=== PATIENT | female | born 1970 | race Caucasian/White ===

== ENCOUNTER 2021-06-14 13:20 | Outpatient (CLI) | payer BC, SELFPAY | END 2021-06-14 23:59 | disposition short-term general hospital (02) | LOC: LABSPEC 13:21 | PROVIDERS: PCP Family Medicine; Referring Provider Physician Assistant Surgical; Visit Provider Physician Assistant Surgical | DX: Z11.52 Encounter for screening for COVID-19 (principal) | CPT/HCPCS: 87635; U0003; U0005 ==

== ENCOUNTER 2023-02-16 06:08 | Emergency (ER) | payer BC, SELFPAY ==
[2023-02-16 06:09] VITALS: BP 147/88; PULSE 85; RESP 18; TEMP 36.1; O2SAT 98; BMI 26.1
--- NOTE | 2023-02-16 06:19 | ED.VIS.GI ---
HPI HPI - GI History of Present Illness Chief Complaint: Abd Pain Informant: patient Narrative Narrative: Patient presents with epigastric pain that has been off and on randomly for a month or more, usually only lasting for an hour or 2, however this morning it woke her up around 1 AM and she presents around 6 AM because of it being persistently uncomfortable despite taking multiple rounds of Tums which have seemed to do nothing. She states it does not usually get worse or better with food once the pain is there. Occasional nausea no vomiting. No bright red blood per rectum or melena. No urinary symptoms. No chest pain or shortness of breath. No history of any abdominal surgeries. She states that she has not mentioned this to her doctor, but she had an abnormal alkaline phosphatase on some routine labs so she has an ultrasound of her liver scheduled as an outpatient. [facility] Medical History High cholesterol Home Medications atorvastatin 20 mg tablet 20 mg PO QHS 02/16/23 [History Last Taken Unknown] Allergy/AdvReac Type Severity Reaction Status Date / Time No Known Allergies Allergy Verified 02/16/23 06:12 Social History Smoking Status: Current every day smoker tobacco type: cigarettes ROS ROS ED Constitutional Constitutional ED: Denies chills or fever(s) Eyes Eyes: Denies change in vision or diplopia ENT ENT ED: Denies rhinorrhea or sore throat Cardiovascular Cardiovascular: Denies chest pain or palpitations Respiratory/Chest Respiratory/Chest: Denies cough or dyspnea Gastrointestinal Gastrointestinal: Reports abdominal pain; Denies diarrhea, melena or vomiting Genitourinary Genitourinary ED: Denies dysuria or hematuria Musculoskeletal Musculoskeletal: Denies back pain or neck pain Integumentary Denies abscess or rash Neurologic Neurologic: Denies headache(s), paresthesias or weakness Psychiatric Psychiatric: Denies anxiety or suicidal thoughts EXAM Physical Exam Const Vital Signs: 02/16/23 06:09 Temperature 97.0 F L Temperature Source Temporal Pulse Rate 85 Respiratory Rate 18 Blood Pressure 147/88 H Blood Pressure Mean 107 Pulse Ox 98 Oxygen Delivery Method Room Air Positive well nourished and well developed General Appearance ED: well developed and NAD HEENT Reports moist mucous membranes normocephalic and atraumatic Eyes PERRL and EOMs intact bilaterally Neck full ROM and supple Resp normal respiratory effort and clear to auscultation bilaterally Cardio regular rate, regular rhythm and no murmurs GI non-distended GI Narrative: Mild high epigastric tenderness, otherwise benign abdomen. Negative Castro. No guarding or rebound tenderness. No palpable pulsatile mass. Auscultation: normoactive bowel sounds Palpation: soft Back/Spine no CVA tenderness General Back: other FROM Extremity normal to inspection General Extremety ED: Negative for edema, pulses abnormal or tenderness General Extremity: Negative for edema or pulses abnormal Neuro oriented x3, CN's II-XII intact bilaterally and no sensory deficits noted Sensorium / Orientation: awake and alert Motor Exam: strength 5/5 throughout Psych mental status grossly normal Skin no rashes or lesions noted and no wounds MDM MDM MDM Narrative Medical decision making narrative: Patient presents at a time when ultrasound is not available, and I do not think she needs an emergent CT. Obtained labs and did a bedside POC gallbladder ultrasound myself, which on my interpretation shows no cholelithiasis, no signs of acute cholecystitis, and a negative sonographic Castro. While working her up she was given oral dicyclomine and simethicone. This did not help at all, so I followed this with IV Toradol which helped significantly. 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 Her vital signs are normal, she does not have significant leukocytosis, her alkaline phosphatase is slightly nonspecifically elevated as she said, I do not have her old ones to compare this with, but her other liver enzymes and lipase are normal. Patient is comfortable going home, advised to follow-up for her scheduled right upper quadrant ultrasound and apparently she is having a CT of the chest as a screening tool for cancer since she is a smoker. Lab Data Attestation: I reviewed the patient's lab results. Labs: Laboratory Results - last 24 hr 02/16/23 06:25 WBC 11.0 RBC 5.03 Hgb 15.2 H Hct 46.2 MCV 91.8 MCH 30.2 MCHC 32.9 RDW Std Deviation 41.4 RDW Coeff of Kaci 12.4 Plt Count 234 MPV 11.9 Immature Gran % (Auto) 0.400 Neut % (Auto) 73.8 H Lymph % (Auto) 18.0 L [place] % (Auto) 5.8 Eos % (Auto) 1.5 Baso % (Auto) 0.5 Absolute Neuts (auto) 8.1 H Absolute Lymphs (auto) 1.98 Nucleated RBC % 0 Sodium 138 Potassium 3.8 Chloride 109 H Carbon Dioxide 22.0 Anion Gap 7 BUN 17 Creatinine 0.91 Estim Creat Clear Calc 73.78 Est GFR (MDRD) Af Amer 84 Est GFR (MDRD) Non-Af 69 BUN/Creatinine Ratio 18.7 Glucose 126 H Calcium 9.7 Total Bilirubin 0.20 AST 17 ALT 42 Alkaline Phosphatase 173 H Total Protein 8.1 Albumin 4.0 Globulin 4.1 Albumin/Globulin Ratio 1.0 Lipase 28 Discharge Plan Triage Chief Complaint: Abd Pain ED Provider: Silver Abarca Dx/Rx/DC Orders Clinical Impression: Acute epigastric pain Instructions: ED Epigastric Pain Uncertain Cause Prescriptions: No Action atorvastatin 20 mg tablet 20 mg PO QHS Patient Comments: TAKE 1 TABLET BY MOUTH EVERY NIGHT AT BEDTIME Primary Care Provider: Wood Segundo Referrals: Wood Segundo MD [Primary Care Provider] - (Follow-up after your outpatient testing) Disposition Disposition: Home, Self Care
[2023-02-16] MEDS: SimETHICONE 80 MG Chewable Tablet 160 MG PO (06:25)
[2023-02-16] MEDS: Dicyclomine 10 MG Capsule 20 MG PO (06:25)
[2023-02-16 06:32] LABS: Absolute Lymphocyte Count 1.98 X10^3/uL (0.83-4.51); Absolute Neutrophil Count 8.1 X10^3/uL (2.0-7.7); Basophil# 0.06 X10^3/uL; Basophil% 0.5 % (0-1); Eosinophil# 0.17 X10^3/uL; Eosinophils% 1.5 % (0-5); Hematocrit 46.2 % (37-47); Hemoglobin 15.2 g/dL (12.0-15.0); Lymphocyte # 1.98 X10^3/ul (0.83-4.51); Mean Corp Hgb Conc 32.9 g/dL (32-36); Mean Corpuscular Hgb 30.2 pg (27.0-32.0); Mean Corpuscular Volume 91.8 fL (81-99); Mean Platelet Vol. 11.9 fl (6.2-12.0); Monocyte# 0.64 X10^3/uL; Monocyte% 5.8 % (0-10); NRBC Flagged by Analyzer 0 % (0-5); Neutrophil % 73.8 % (47-70); Platelet Count 234 K/mm3 (150-450); RBC Distribution Width CV 12.4 % (11.6-14.6); RBC Distribution Width SD 41.4 fl (35.1-43.9); Red Blood Count 5.03 M/mm3 (4.2-5.4)
[2023-02-16 06:49] LABS: AST(SGOT) 17 U/L (15-37); Alanine Aminotransfer ALT/SGPT 42 U/L (13-56); Alkaline Phosphatase 173 U/L (45-117); Anion Gap 7 (5-15); BUN 17 mg/dL (7-18); BUN/Creat Ratio 18.7 RATIO (10-20); Calcium,Total 9.7 mg/dL (8.5-10.1); Chloride 109 mmol/L (98-107); Creatinine, Serum 0.91 mg/dL (0.55-1.02); EST Glomerular Filtration Rate 69 mL/min (>60); Est Glom Filt Rate - Afr Amer 84 mL/min (>60); Estimated Creatinine Clearance 73.78 ml/min; Globulin 4.1 g/dL (2.2-4.2); Glucose 126 mg/dL (74-106); Lipase 28 U/L (13-75); Potassium 3.8 mmol/L (3.5-5.1); Protein, Total 8.1 g/dL (6.4-8.2); Sodium Level 138 mmol/L (136-145)
[2023-02-16] MEDS: Ketorolac 15 MG/ML Vial IV (07:06)
== END 2023-02-16 07:42 | disposition home or self-care (01) ==
PROVIDERS: Emergency Provider Emergency Medicine; PCP Family Medicine; Visit Provider Emergency Medicine
DX: R10.13 Epigastric pain (principal); E78.00 Pure hypercholesterolemia, unspecified; F17.210 Nicotine dependence, cigarettes, uncomplicated; Z79.899 Other long term (current) drug therapy
CPT/HCPCS: 80053; 83690; 85025; 96374; 99283; A4216